=== PATIENT | female | born 1995 | race Caucasian/White ===

== ENCOUNTER 2017-04-20 17:31 | Emergency (ER) | payer OTHER ==
[~2017-04-20] VITALS: Ht 165.1 cm; Wt 67.5 kg
[~2017-04-20 17:31] MED LIST: DENIES
[2017-04-20 17:40] VITALS: Ht 165.1 cm; Wt 67.5 kg
[2017-04-20] MEDS ORDERED: AMOX500C2 PO (17:52)
[2017-04-20] MEDS ORDERED: IBUP-1542 PO (17:52)
--- NOTE | 2017-04-20 17:54 | ERD ---
ER Documentation Chief Complaint Date/Time DATE: 04/20/17 TIME: 17:53 Chief Complaint BILATERAL EAR PAIN X 2 MONTHS, WORSE TODAY, TINITITIS & DIMINISHED HEARING HPI 21-year-old female presents with history of chronic ear infections and bilateral ear pain for the past 2 months she states right now she has pain in her left ear with ringing in her ear and decreased hearing. She also states she had some blood come out of her left ear. No fever. She has not taken any medications currently. Pain is 8 out of 10. ROS All systems reviewed and are negative except as per history of present illness. Medications Home Meds Active Scripts Ibuprofen* (Ibuprofen*) 600 Mg Tablet, 600 MG PO Q6, #30 TAB Prov:PAUL ALONSO PA-C 04/20/17 Amoxicillin* (Amoxicillin*) 500 Mg Cap, 500 MG PO BID for 7 Days, CAP Prov:PAUL ALONSO PA-C 04/20/17 Reported Medications [Denies] No Conflict Check 09/14/10 Allergies Allergies: Coded Allergies: No Known Drug Allergies (Verified Allergy, Mild, 04/20/17) PMhx/Soc Medical and Surgical Hx: pt denies Medical Hx, pt denies Surgical Hx History of Surgery: No Anesthesia Reaction: No Hx Neurological Disorder: No Hx Respiratory Disorders: Yes (ASTHMA) Hx Cardiac Disorders: No Hx Psychiatric Problems: No Hx Miscellaneous Medical Probl: No Hx Alcohol Use: No Hx Substance Use: No Hx Tobacco Use: No Smoking Status: Never smoker FmHx Family History: No diabetes Physical Exam Vitals Vital Signs Date Time Temp Pulse Resp B/P Pulse Ox O2 Delivery O2 Flow Rate FiO2 04/20/17 17:40 99.0 57 18 133/86 100 Physical Exam INITIAL VITAL SIGNS: Reviewed by me GENERAL: Awake, alert and oriented x 4, well appearing, nontoxic, speaking in full sentences. No acute distress HEAD: Atraumatic NECK: Supple. No masses. Full range of motion. No meningismus. No midline tenderness. EYES: EOMI. PERRL. EAR: No tenderness over the mastoids bilaterally. Left tympanic membrane is erythematous, right ear within normal limits, no exudates in the canal bilaterally THROAT: No tonilar erythema or edema. No exudates. Uvula midline. No kissing tonsils. RESPIRATORY: Clear to auscultation bilaterally. Symmetric chest wall rise. No wheezing or rales. No accessory muscle use. CV: Regular rate and rhythm. No murmurs, rubs, or gallops. Procedures/MDM Patient presents with otitis media in the left ear. She is discharged with amoxicillin. Patient counseled regarding my diagnostic impression and care plan. Prior to discharge all questions answered. Pt agrees with treatment plan and understands strict return precautions. Pt is instructed to follow up with primary care provider within 24-48 hours. Precautionary instructions provided including instructions to return to the ER if not improving or for any worsening or changing symptoms or concerns. Departure Diagnosis: Primary Impression: Otitis media Condition: Stable Patient Instructions: Otitis Media, Abx Tx [Child] Additional Instructions: Call your primary care doctor TOMORROW for an appointment during the next 1-2 days.See the doctor sooner or return here if your condition worsens before your appointment time. PAUL ALONSO PA-C Apr 20, 2017 17:54
== END 2017-04-20 18:11 | disposition home or self-care (01) ==
LOC: FTE 17:31
DX: H66.93 Otitis media, unspecified, bilateral (principal); J45.909 Unspecified asthma, uncomplicated
CPT/HCPCS: 99283